=== PATIENT | male | born 1995 | race African-American/Black ===

== ENCOUNTER 2018-07-01 19:09 | Emergency (ER) | payer SELFPAY ==
[~2018-07-01] VITALS: Ht 162.6 cm; Wt 63.5 kg
[~2018-07-01 19:09] MED LIST: HYDR-3164 PO; SILV20CR14 TP
[2018-07-01 20:03] VITALS: BP 117/68
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
[2018-07-01] MEDS ORDERED: MELO7.5T29 PO (21:24)
== END 2018-07-01 21:29 | disposition home or self-care (01) ==
LOC: ER 19:09
DX: T23.261D Burn of second degree of back of right hand, subsequent encounter (principal); Z91.010 Allergy to peanuts; X10.2XXD Contact with fats and cooking oils, subsequent encounter
CPT/HCPCS: 10060; 99283